=== PATIENT | female | born 1940 | race Two or more races ===

== ENCOUNTER 2025-01-19 19:06 | Inpatient (IN) | payer MEDICARE, OTHER ==
[~2025-01-19] VITALS: Ht 160 cm; Wt 56.7 kg
[2025-01-19 20:48] LABS: CALCIUM, SERUM 9.3 mg/dL (8.5-10.1); CREATININE 0.8 mg/dL (0.6-1.3); SODIUM SERUM 143.0 mmol/L (136-145); UREA NITROGEN, BLOOD 19.0 mg/dL (7-18)
[2025-01-19 20:50] LABS: PLATELET COUNT (AUTO) 167 K/uL (150-450); RED BLOOD CELL COUNT(AUTO) 4.58 MIL/uL (4.0-5.2); RED CELL DISTRIBUTION WIDTH 13.6 % (11.5-15.0); WHITE BLOOD COUNT (AUTO) 6.1 K/uL (4.3-11.0)
[2025-01-19 20:56] LABS: INR 1.0 (0.91-1.10)
[2025-01-19] MEDS ORDERED: Z GUARD REMEDY 4 OZ OINT TP PRN (23:30)
[2025-01-19] MEDS ORDERED: ONDANSETRON HCL/PF 4 MG/2 ML VIAL IVP PRN (23:30)
[2025-01-19] MEDS ORDERED: MAGNESIUM HYDROXIDE 30 ML UDC PO PRN (23:30)
[2025-01-19 23:56] LABS: AMPHETAMINE, URINE NEGATIVE (NEGATIVE); BARBITURATE, URINE NEGATIVE (NEGATIVE); BENZODIAZEPINE, URINE NEGATIVE (NEGATIVE); CANNABINOID, URINE NEGATIVE (NEGATIVE); COCCAINE, URINE NEGATIVE (NEGATIVE); OPIATE, URINE NEGATIVE (NEGATIVE)
[2025-01-20 00:10] LABS: APPEARANCE,URINE CLEAR (CLEAR); BLOOD, URINE NEGATIVE Ery/uL (NEGATIVE); LEUKOCYTE ESTERASE ,URINE NEGATIVE (NEGATIVE); NITRITE, URINE NEGATIVE (NEGATIVE); UGLUCOSE NEGATIVE (NEGATIVE)
[2025-01-20] MEDS ORDERED: CARB1TAB21 PO (00:25)
[2025-01-20] MEDS ORDERED: MAG-151 PO (00:25)
[2025-01-20] MEDS ORDERED: BISA10SU11 RC (00:25)
[2025-01-20] MEDS ORDERED: ACET325T53 PO (00:25)
[2025-01-20] MEDS ORDERED: ATOR20TA PO (00:25)
[2025-01-20] MEDS ORDERED: MELA5TAB21 PO (00:25)
[2025-01-20] MEDS ORDERED: MIRT7.5T10 PO (00:25)
[2025-01-20] MEDS ORDERED: DONE10TA11 PO (00:25)
[2025-01-20] MEDS ORDERED: DOCU100C36 PO (00:25)
[2025-01-20] MEDS ORDERED: SERT25TA PO (00:25)
[2025-01-20 00:29] LABS: ADD URINE CULTURE NO; SQUAMOUS EPITHELIAL CELL,UR 0-2 /HPF (None Seen)
[2025-01-20 00:45] VITALS: BP 124/70; TEMP 97.5; O2SAT 98
[2025-01-20] MEDS: POTASSIUM CHLORIDE 20 MEQ TAB.PRT.SR PO ONE (01:09)
[2025-01-20] MEDS: IV 1/2NS 1000 ML 1,000 ML IV PRN (01:10)
[2025-01-20 07:09] LABS: PLATELET COUNT (AUTO) 165 K/uL (150-450); RED BLOOD CELL COUNT(AUTO) 4.14 MIL/uL (4.0-5.2); RED CELL DISTRIBUTION WIDTH 13.5 % (11.5-15.0); WHITE BLOOD COUNT (AUTO) 6.0 K/uL (4.3-11.0)
[2025-01-20 07:26] LABS: CALCIUM, SERUM 9.2 mg/dL (8.5-10.1); CREATININE 0.5 mg/dL (0.6-1.3); PHOSPHORUS 3.2 mg/dL (2.5-4.9); SODIUM SERUM 144.0 mmol/L (136-145); UREA NITROGEN, BLOOD 17.0 mg/dL (7-18)
[2025-01-20 08:57] VITALS: BP 94/52; TEMP 97.7; O2SAT 99
[2025-01-20] MEDS: PANTOPRAZOLE 40 MG TABLET.DR PO SCH (09:15)
[2025-01-20] MEDS: ENOXAPARIN SODIUM 40 MG/0.4 ML DISP.SYRIN SQ SCH (09:16)
[2025-01-20 16:10] VITALS: BP 108/90; TEMP 98.2; O2SAT 99
[2025-01-20 20:00] VITALS: BP 124/50; TEMP 98.4; O2SAT 98
[2025-01-21 08:00] VITALS: BP 128/60; TEMP 98.8; O2SAT 96
[2025-01-21 16:00] VITALS: BP 130/60; TEMP 98.2; O2SAT 98
[2025-01-21 20:00] VITALS: BP 118/77; TEMP 98.1; O2SAT 96
[2025-01-21] MEDS: ACETAMINOPHEN 325 MG TABLET PO PRN (23:32)
== END 2025-01-22 10:30 | DRG 641 ==
LOC: ER 21:12 → MED 22:08
PROVIDERS: ADMIT Nurse Practitioner Family; ATTEND Nurse Practitioner Acute Care
DX: E86.0 Dehydration (principal); F02.84 Dementia in other diseases classified elsewhere, unspecified severity, with anxiety; F02.83 Dementia in other diseases classified elsewhere, unspecified severity, with mood disturbance; G30.9 Alzheimer's disease, unspecified; R62.7 Adult failure to thrive; Z20.822 Contact with and (suspected) exposure to COVID-19; G20.A1 Parkinson's disease without dyskinesia, without mention of fluctuations; F32.A Depression, unspecified; D64.9 Anemia, unspecified; E87.6 Hypokalemia; R79.89 Other specified abnormal findings of blood chemistry; F41.9 Anxiety disorder, unspecified; Z86.59 Personal history of other mental and behavioral disorders
CPT/HCPCS: 36415; 71045-TC; 80048-TC; 81001; 83735-TC; 84100-TC; 84443-TC; 85025-TC; 85730-TC; 97112-TC; 97116-TC; 97530-TC; A4223; G0378; J1650; J3490